=== PATIENT | male | born 1960 | race Caucasian/White ===

== ENCOUNTER 2023-09-30 07:50 | Emergency (ER) | payer BC, SELFPAY ==
--- NOTE | ~2023-09-30 | XR_ITS ---
EXAMINATION: XR LUMBOSACRAL SPINE CLINICAL INFORMATION: Lower back pain. Previous surgery COMPARISON: None available. TECHNIQUE: Three views of the lumbosacral spine. FINDINGS: There is normal lumbar lordosis with loss of disc height virtually at every disc level. The vertebral heights and alignment is normal. There are bilateral L4, L5 and S1 pedicular screws with interconnecting arnie for correction of L5 anterolisthesis over S1. In addition there is a solitary screw traversing the S1 vertebra. Moderate ventral spondylosis seen at all disc levels. There is minimal levoscoliosis. XR/XR lumbar spine 2-3V IMPRESSION: 1. Bilateral L4, L5 and S1 pedicular screws with interconnecting arnie for correction of anterolisthesis of L5 over S1. There is a solitary screw traversing the S1 vertebra. 2. There are degenerative disc changes virtually at every disc level with ventral spondylosis.
[2023-09-30 08:24] VITALS: BP 118/78; PULSE 95; RESP 16; TEMP 36.6; O2SAT 95; BMI 37.1
--- NOTE | 2023-09-30 09:27 | ED.BACK ---
HPI - Back Pain/Injury General Chief Complaint: Back Pain/Injury Stated Complaint: Back Pain Time Seen by Provider: 09/30/23 09:27 Source: patient Mode of arrival: wheelchair Limitations: no limitations History of Present Illness HPI Narrative: Patient is a 63-year-old male with history of multiple prior back surgeries presenting to the emergency department with acute exacerbation of lower back pain. He reports that he was working on a car Friday and felt some increased pain, yesterday pain continued to increase. Denies fall or other trauma. Denies saddle anesthesia or bowel or bladder incontinence. Denies fevers or IV drug use. Reports this morning he took 15 mg of oxycodone which was left over from his most recent surgery which did improve his symptoms somewhat. Denies radiation of pain to his lower extremities. Denies any weakness, numbness, tingling to lower extremities. MD elicited complaint: back pain Pertinent past history: prior back pain and back surgery Onset (ago): day(s) Timing: progressively worsening Severity: severe Similar Symptoms Previously: Yes Quality: aching Location: lumbar spine Radiation: none Exacerbating factors: movement Relieving factors: medication Associated symptoms: denies other symptoms Treatments prior to arrival: NSAIDS Work related injury: No Related Data Previous Rx's Medication Instructions Recorded cyclobenzaprine 5 mg tablet 5 mg PO TID PRN muscle spasm #10 09/30/23 tabs lidocaine 5 % topical patch 1 patch topical DAILY #15 ea 09/30/23 oxycodone 5 mg tablet 5 mg PO Q8H PRN pain #6 tabs 09/30/23 prednisone 20 mg tablet 40 mg (2 x 20 mg) PO DAILY #10 tabs 09/30/23 Allergies Allergy/AdvReac Type Severity Reaction Status Date / Time No Known Allergies Allergy Verified 09/30/23 08:29 Review of Systems Review of Systems: As per HPI. Yes all other systems are reviewed and are negative Constitutional: Constitutional: Reports as per HPI PMFSH Social History Social History Smoked in Last 30 Days: Yes Use of substances other than those prescribed or required for medical reasons: No Advance Directives: No Physical Exam Vital Signs: Vital Signs: Last Vital Signs Temp 97.8 F 09/30/23 08:24 Pulse 95 09/30/23 08:24 Resp 16 09/30/23 08:24 BP 118/78 09/30/23 08:24 Pulse Ox 95 03/19/24 08:24 O2 Del Method Room Air 09/30/23 08:24 BMI result Body Mass Index 37.1 Vital signs have been reviewed and appear to be correct. Blood pressure normal. Heart rate normal. Respiratory rate normal. Temperature normal. Oxygen saturation normal. Const: General: cooperative, healthy appearing and no acute distress Orientation/consciousness: oriented to person, oriented to place, oriented to time and patient oriented x3 Limitations: no limitations HEENT: Head: Yes normocephalic and Yes atraumatic Ears: external ears normal General nose exam: Normal external nose present Face and sinus: Yes face symmetric Mouth: oropharynx normal and moist mucous membranes Throat: Yes uvula midline Eyes: Pupils: Equal, round and reactive pupils present Neck: Neck: Yes normal visual inspection and Yes supple Resp: Effort & Inspection: normal respiratory effort and able to speak in complete sentences Auscultation: clear to auscultation bilaterally Cardio: Rate: regular rate Rhythm: regular rhythm Heart sounds: S1 normal heart sound present and S2 normal heart sound present GI: Palpation (GI): Soft to palpation and nontender Auscultation: normoactive bowel sounds : General: Yes no CVA tenderness Back/Spine/Pelvis: Back: no CVA tenderness Thoracic/Lumbar Spine: Thoracic/lumbar spine scar(s), thoraco-lumbar ROM normal, straight leg raise negative bilaterally, pain with thoraco-lumbar ROM, No thoracic spinal tenderness and No lumbar spinal tenderness Skin: General skin exam: elasticity normal and turgor normal Neuro: General: oriented to person, oriented to place, oriented to time, patient oriented x3, moves all extremities, no focal motor deficits and CN's II-XI intact bilaterally Cranial nerves: Yes Equal, round and reactive pupils present Cognition (Neuro): normal cognition Extrem: General: Yes full ROM, Yes no pedal edema and Yes no calf tenderness Psych: Mental Status: mental status grossly normal Affect: normal affect Thought process: Normal thought process present Medications Administered Discontinued Medications Generic Name Dose Route Start Last Admin Trade Name Freq PRN Reason Stop Dose Admin Ketorolac Tromethamine 30 mg 09/30/23 09:48 09/30/23 09:56 Ketorolac Tromethamine 30 Mg/Ml Vial IM 09/30/23 09:49 30 mg ONCE ONE Administration Medical Decision Making Medical Decision Making MDM Narrative: Patient is a 63-year-old male with history of multiple prior back surgeries presenting to the emergency department with acute exacerbation of lower back pain. On exam patient is awake, A+Ox3, VS WNL, afebrile, normal neurological exam without focal deficits, physical exam findings as above. Given reported symptoms and physical exam findings, initial differential includes lumbar strain, lumbar radiculopathy, hardware derangement. Do not suspect malignancy/mass, SEA, cauda equina/cord compression. X-ray notable for degenerative disc changes at nearly every disc level with spondylosis. My interpretation is in agreement with the radiologist's interpretation. Patient treated with Toradol in the ED as he states this has worked well for him in the past. Patient is able to ambulate with steady gait in the ED. Feel he is stable for discharge home with short course of oxycodone, cyclobenzaprine, prednisone, and lidocaine patches. No concerns on review of [employer]. Instructed him to follow up with Dr. Calero for any ongoing symptoms. Return precautions discussed at bedside. Patient verbalized understanding of and agreement with plan. Differential Diagnosis Differential Diagnoses: The differential diagnosis associated with the presentation includes As per MDM. Admission/Observation Consideration of admission/observation: Escalation of care including admission/observation considered Patient would have been admitted to the hospital had their work up had any findings where hospital admission was appropriate and their clinical presentation warranted hospital admission. Independent Interpretation I performed an independent interpretation of an: Plain X-Ray Interpretation: degenerative disc changes at nearly every disc level with spondylosis Radiology Impression Discussion of test interpretation with radiology: I have reviewed the radiologist's reading. Radiologist Impression: XR/XR lumbar spine 2-3V IMPRESSION: 1. Bilateral L4, L5 and S1 pedicular screws with interconnecting arnie for correction of anterolisthesis of L5 over S1. There is a solitary screw traversing the S1 vertebra. 2. There are degenerative disc changes virtually at every disc level with ventral spondylosis. External Record Review External record reviewed: Inpatient record, Office record and Outpatient record Prescription Management I considered prescription management with: Pain Medication and Other Discharge Plan Discharge Clinical Impression: Strain of lumbar region Patient Disposition: Home, Self-Care Instructions: Low Back Strain (ED) Additional Instructions: You were evaluated in the emergency department today for back pain. Your evaluation did not show signs of medical conditions requiring emergent intervention at this time. We recommended that you use ibuprofen or Tylenol per package directions every 6 hours as needed for pain. If necessary, you can alternate these medications so that you take one medication every 3 hours. For instance, at noon take ibuprofen, then at 3:00 p.m. take Tylenol, then at 6:00 p.m. take ibuprofen. You are being prescribed a short course of oxycodone for severe pain. You have been prescribed a muscle relaxer which you may take every 8 hours as needed for spasms. You are being prescribed a short course of prednisone to decrease inflammation. You have been prescribed 5% topical lidocaine patches which you can wear for up to 12 hours in a 24 hour period. Do not apply heat directly over the patches. Please schedule an appointment for follow-up with your primary care physician this week for further evaluation of your symptoms. Return to the emergency department if you experience worsening back pain, difficulty walking, fevers, numbness, tingling, incontinence, groin numbness or tingling, or any other concerning symptoms. Follow up with Dr. Calero for any ongoing symptoms. Prescriptions: New prednisone 20 mg tablet 40 mg PO DAILY Qty: 10 0RF cyclobenzaprine 5 mg tablet 5 mg PO TID PRN (Reason: muscle spasm) Qty: 10 0RF lidocaine 5 % adhesive patch,medicated 1 patch topical DAILY Qty: 15 0RF Rx Instructions: leave on most painful area for up to 12 hrs oxycodone 5 mg tablet 5 mg PO Q8H PRN (Reason: pain) Qty: 6 0RF Rx Instructions: Partial Fill upon patient request. Referrals: Mic Calero MD, PhD [Physician] -
[2023-09-30] MEDS: Ketorolac Tromethamine 30 MG/ML VIAL IM (09:56)
--- NOTE | 2023-09-30 09:58 | PC.NURSE ---
medication administered per provider order. effectiveness pending.
[2023-09-30 10:47] VITALS: BP 118/78; PULSE 95; RESP 16; TEMP 36.6; O2SAT 95
== END 2023-09-30 10:48 | disposition home or self-care (01) ==
PROVIDERS: Emergency Provider Emergency Medicine; PCP Family Medicine
DX: S39.012A Strain of muscle, fascia and tendon of lower back, initial encounter (principal); Y33.XXXA Other specified events, undetermined intent, initial encounter; Y93.9 Activity, unspecified; Y92.9 Unspecified place or not applicable; Y99.8 Other external cause status
CPT/HCPCS: 72100; 96372; 99284; J1885

== ENCOUNTER 2023-10-17 14:08 | Outpatient (AMB) | payer BC, SELFPAY ==
--- NOTE | 2023-10-17 14:16 | HO.SPINEOV ---
Intake Intake Visit Reasons: ED f/u Intake Note: Mr. Dixon is here today for ED F/u. [employer] Required: No Allergies No Known Allergies Allergy (Verified 09/30/23 08:29) Assessment & Plan Assessment & Plan (1) Back pain: Code(s): M54.9 - Dorsalgia, unspecified Plan Mr Dixon came in today for an emergency room follow-up. He had been working on an automobile and the following afternoon he had a significant flare-up of pain in his right side of his low back into his right hip. He went to the emergency room, ultimately was treated with medications and now the pain has gone away. Overall he has been doing well since his last surgery which was probably 4 or 5 years ago. We did a two-level fusion at [facility] including an axialif at L5-S1. I reviewed his x-rays, he does have a slight lateral listhesis at L3-4. Since he generally not symptomatic we do not need to do any further imaging or any further workup. He can continue on without restrictions and can follow-up on an as-needed basis. Total amount of time spent in this visit was 20 minutes in discussion of symptoms, lumbar x-ray imaging results and subsequent plan of care Jamel Calero MD,PhD [facility] Coding Level of Care Code Est Pt Level 3 (66751) Diagnoses Back pain M54.9
== END 2023-10-17 14:58 | disposition home or self-care (01) ==
PROVIDERS: PCP Family Medicine; Visit Provider Physician Assistant
DX: M54.9 Dorsalgia, unspecified (principal)
CPT/HCPCS: 99213

== ENCOUNTER → 2023-10-17 14:08 | Outpatient (BNVA) | payer BC, SELFPAY | PROVIDERS: PCP Family Medicine; Visit Provider Physician Assistant ==